=== PATIENT | female | born 2000 | race Caucasian/White ===

== ENCOUNTER 2020-05-03 23:50 | Emergency (ER) | payer OTHER ==
[~2020-05-03] VITALS: Ht 157.5 cm; Wt 90.7 kg
[2020-05-04] MEDS ORDERED: LAMICTAL XR50 MG PO (00:12)
[2020-05-04] MEDS ORDERED: ZOLOFT25 MG PO (00:12)
[2020-05-04 00:34] LABS: ABSOLUTE BASOPHILS 0.1 thou/uL (0.0-0.2); ABSOLUTE EOSINOPHILS 0.1 thou/uL (0.0-0.7); ABSOLUTE LYMPHOCYTES 3.9 thou/uL (0.8-5.3); ABSOLUTE MONOCYTES 0.7 thou/uL (0.0-1.2); ABSOLUTE NEUTROPHILS 4.2 thou/uL (1.6-8.1); BASOPHILS 0.8 %; EOSINOPHILS 1.4 %; HEMATOCRIT 39.6 % (37.0-47.0); HEMOGLOBIN 13.4 gm/dL (12.0-15.0); LYMPHOCYTES 43.6 %; MCH 27.8 pg (26.0-34.0); MCHC 33.8 g/dL (28.0-37.0); MCV 82.3 fL (80.0-100.0); MONOCYTES 7.7 %; MPV 9.1 fl. (7.2-11.1); NUCLEATED RBCS 0 /100WBC; PLATELET COUNT* 320 thou/uL (150-400); POLYS 46.5 %; RBC 4.81 mil/uL (4.20-5.00); RDW-CV 13.1 % (10.5-14.5)
[2020-05-04 00:47] LABS: CALCIUM 8.8 mg/dL (8.5-10.1); POTASSIUM 3.5 mmol/L (3.5-5.1)
[2020-05-04 00:51] LABS: ALBUMIN 3.6 g/dL (3.4-5.0); TOTAL BILIRUBIN 0.2 mg/dL (<0.1-1.0); TOTAL PROTEIN 8.2 g/dL (6.4-8.2)
[2020-05-04 01:40] VITALS: BP 131/81
--- NOTE | 2020-05-04 14:16 | EKG ---
[place] [address] ELECTROCARDIOGRAM REPORT Name: DENIS ULLOA Room: [facility]#: [id number] Admission: 05/03/20 Attend Phys: Discharge: 05/04/20 Date of : 89 Date of Service: 05/04/20 0014 Report #: [id number] THIS REPORT FOR: //name// [facility] ED Test Date: 2020-05-04 Test Time: 00:14:05 Pat Name: DENIS ULLOA Department: Room: Gender: [employer] Operator: [place] : 2000 Requested By: Braulio Colon Order Number: [id number] MD: Chase Kelley Measurements Intervals [place] Rate: 110 P: 19 MI: 129 QRS: 57 QRSD: 95 T: 4 QT: 315 QTc: 427 Interpretive Statements Sinus tachycardia Baseline wander in lead(s) II,III,aVF No previous ECG available for comparison Electronically Signed On 05-04-2020 14:16:07 CDT by Chase Kelley [email or web address] <ELECTRONICALLY SIGNED> By: Chase Kelley MD, [facility] 05/04/20 1416 0014 0014 Chase Kelley MD, [facility] /EPI
== END 2020-05-04 01:40 | disposition home or self-care (01) ==
LOC: M.ERS 23:50
PROVIDERS: Family Medicine
DX: F41.0 Panic disorder [episodic paroxysmal anxiety] (principal); Z20.828 Contact with and (suspected) exposure to other viral communicable diseases; E03.9 Hypothyroidism, unspecified; F32.9 Major depressive disorder, single episode, unspecified